=== PATIENT | male | born 1955 | race Two or more races ===

== ENCOUNTER 2022-12-02 10:11 | Inpatient (IN) | payer MEDICARE ==
[~2022-12-02] VITALS: Ht 170.2 cm; Wt 47.6 kg
--- NOTE | 2022-12-02 11:00 | NUR ---
Updated and made aware of plan of care. NO obvious distress
--- NOTE | 2022-12-02 11:40 | NUR ---
TECH AT BEDSIDE FOR EKG
--- NOTE | 2022-12-02 11:44 | NUR ---
CALLED [facility] [phone]BOTTS OSPINA.
[2022-12-02] MEDS ORDERED: IV NS 0.9% 1,000 ML BAG IV ONE (12:00)
[2022-12-02 12:06] LABS: CALCIUM, SERUM 9.3 mg/dL (8.5-10.1)
[2022-12-02 12:11] LABS: ALBUMIN 3.2 g/dL (3.4-5.0); BILIRUBIN,DIRECT 0.3 mg/dL (0.0-0.2); BILIRUBIN,TOTAL 0.9 mg/dL (0.2-1.0)
[2022-12-02 12:41] LABS: BASOPHILS % (AUTO) 0.1 % (0.0-2.0); HEMATOCRIT 37 % (39-51); LYMPHOCYTES # (AUTO) 1.1 K/uL (0.8-4.8); LYMPHOCYTES % (AUTO) 8.9 % (20.0-44.0); MEAN CORPUSCULAR HGB CONC 33 g/dl (31.0-36.0); MEAN CORPUSCULAR VOLUME 103 fL (80-96); MONOCYTES # (AUTO) 1.1 K/uL (0.1-1.30); MONOCYTES % (AUTO) 9.1 % (2.0-12.0); NEUTROPHILS # (AUTO) 9.9 K/uL (1.8-8.9); NEUTROPHILS % (AUTO) 81.9 % (43.0-81.0); PLATELET COUNT (AUTO) 187 K/uL (150-450); RED BLOOD CELL COUNT(AUTO) 3.59 MIL/uL (4.5-6.0); WHITE BLOOD COUNT (AUTO) 12.1 K/uL (4.3-11.0)
--- NOTE | 2022-12-02 12:51 | NUR ---
RAPID COVID SWAB DONE AND SENT TO LAB
[2022-12-02] MEDS ORDERED: ONDANSETRON HCL/PF 4 MG/2 ML VIAL IVP ONE (13:00)
[2022-12-02] MEDS ORDERED: MORPHINE SULFATE INJ 2 MG/ML DISP.SYRIN IV ONE (13:00)
[2022-12-02] MEDS ORDERED: MORPHINE SULFATE INJ 4 MG/ML DISP.SYRIN ONE (13:10)
[2022-12-02] MEDS ORDERED: ONDANSETRON HCL/PF 4 MG/2 ML VIAL ONE (13:10)
--- NOTE | 2022-12-02 13:15 | NUR ---
EPIC PAGED, AWAITING HOSPITALIST CALL BACK.
--- NOTE | 2022-12-02 14:43 | NUR ---
Awaiting Room assignment. Pt made aware of pending admission. NO acute Changes- VSS. States "pain ok when NOT moving"
--- NOTE | 2022-12-02 15:56 | NUR ---
BED 312-1
--- NOTE | 2022-12-02 16:00 | NUR ---
REPORT GIVEN TO LATRELL GARAY OF [facility]
--- NOTE | 2022-12-02 16:13 | NUR ---
NO obvious distress/NO acute changes.. VSS. Transfer to floor/[place] by EMT in stable condition
--- NOTE | 2022-12-02 16:30 | NUR ---
RN ADMITTING NOTE ADMITTED THIS 67 Y/O MALE PATIENT FROM ED. TRANSPORTED VIA GURNEY, ACCOMPANIED BY ER STAFF. PATIENT IS AWAKE, A/O X4. VERBALLY RESPONSIVE AND ABLE TO MAKE NEEDS KNOWN. PATIENT ON ROOM AIR, BREATHING EVEN AND UNLABORED. PATIENT C/O PAIN ON HIS RIGHT HIP WHEN MOVING. VITAL SIGNS TAKEN AND STABLE. NOTED WITH IV ACCESS ON RIGHT ANTECUBITAL AREA #20G, INTACT AND PATENT, FLUSHES WELL. UNABLE TO DO THOROUGH BODY ASSESSMENT PATIENT REFUSED TO BE TURNED BECAUSE OF PAIN. NO PERTINENT MEDICAL HISTORY. SAFETY MEASURE IN PLACE. BED IN LOW AND LOCKED POSITION. SIDE RAILS UP X2, TABLE AND WENDY LIGHT PLACED WITHIN EASY REACH. WILL CONTINUE TO MONITOR PATIENT.
[2022-12-02 17:46] VITALS: BP 140/83
--- NOTE | 2022-12-02 18:50 | NUR ---
RN CLOSING NOTE PATIENT RESTING IN BED, AWAKE. DENIES ANY PAIN AT THIS TIME, PAIN ONLY WHEN HE MOVES. REMAINS STABLE ON ROOM AIR, BREATHING EVEN AND UNLABORED, NO SOB NOTED. IV ACCESS JOSHUA RIGHT AC #20G, INTACT AND PATENT, SALINE LOCKED. SAFETY MEASURE IN PLACE. BED IN LOW AND LOCKED POSITION, SIDE RAILS UP X2, CALL LIGHT PLACED WITHIN EASY REACH. WILL ENDORSE TO NEXT SHIFT FOR CONTINUITY OF CARE.
[2022-12-02] MEDS ORDERED: Z GUARD REMEDY 4 OZ OINT TP PRN (19:00)
[2022-12-02] MEDS ORDERED: ONDANSETRON HCL/PF 4 MG/2 ML VIAL IVP PRN (19:00)
[2022-12-02] MEDS ORDERED: ACETAMINOPHEN 325 MG TABLET PO PRN (19:00)
[2022-12-02] MEDS ORDERED: MAGNESIUM HYDROXIDE 30 ML UDC PO PRN (19:00)
--- NOTE | 2022-12-02 19:00 | NUR ---
MS RN OPENING NOTE PATIENT IS IN BED WATCHING TV. HE IS ALERT AND ORIENTED, AO X 4. HE IS ON RA, TOLERATED WELL. NO S/S OF DISTRESS OR SOB. IV ACCESS IS AT HIS R AC, #20G, SL. FLUSHED WITH 10 CC NS; PATENT AND INTACT. PATIENT DENIES OF HAVING PAIN AT THIS MOMENT. SAFETY MEASURES ARE IN PLACE: BED IN LOWEST AND LOCKED POSITION; CALL LIGHT AND TABLE ARE WITHIN REACH; SIDE RAILS UP X 2. WILL CONTINUE MONITORING THE PATIENT AND PROVIDE THE CARE PATIENT NEEDS.
[2022-12-02 20:20] VITALS: BP 106/73
[2022-12-02] MEDS: ENOXAPARIN SODIUM 40 MG/0.4 ML DISP.SYRIN SQ SCH (20:55)
[2022-12-03 06:34] LABS: BASOPHILS % (AUTO) 0.5 % (0.0-2.0); EOSINOPHILS % (AUTO) 0.5 % (0.0-6.0); HEMATOCRIT 32 % (39-51); HEMOGLOBIN 10.8 g/dL (13.5-17.5); LYMPHOCYTES # (AUTO) 1.6 K/uL (0.8-4.8); LYMPHOCYTES % (AUTO) 20.4 % (20.0-44.0); MEAN CORPUSCULAR HGB CONC 34 g/dl (31.0-36.0); MEAN CORPUSCULAR VOLUME 102 fL (80-96); MONOCYTES # (AUTO) 0.7 K/uL (0.1-1.30); MONOCYTES % (AUTO) 8.9 % (2.0-12.0); NEUTROPHILS # (AUTO) 5.6 K/uL (1.8-8.9); NEUTROPHILS % (AUTO) 69.7 % (43.0-81.0); PLATELET COUNT (AUTO) 154 K/uL (150-450); RED BLOOD CELL COUNT(AUTO) 3.11 MIL/uL (4.5-6.0); WHITE BLOOD COUNT (AUTO) 8.1 K/uL (4.3-11.0)
[2022-12-03 06:55] LABS: ALBUMIN 2.5 g/dL (3.4-5.0); BILIRUBIN,TOTAL 0.7 mg/dL (0.2-1.0); CALCIUM, SERUM 8.5 mg/dL (8.5-10.1); CREATININE 0.9 mg/dL (0.6-1.3); MAGNESIUM 1.7 mg/dL (1.8-2.4); PHOSPHORUS 3.3 mg/dL (2.5-4.9); POTASSIUM 3.3 mmol/L (3.5-5.1)
--- NOTE | 2022-12-03 07:03 | NUR ---
MS RN CLOSING NOTE PATIENT IS IN BED SLEEPING; EASILY BEING AROUSED. HE IS ALERT AND ORIENTED, AO X 4. HE IS ON RA, TOLERATED WELL. NO S/S OF DISTRESS OR SOB. IV ACCESS IS AT HIS R AC, #20G, SL. FLUSHED WITH 10 CC NS; PATENT AND INTACT. PATIENT DENIES OF HAVING PAIN AT THIS MOMENT. SAFETY MEASURES ARE IN PLACE: BED IN LOWEST AND LOCKED POSITION; CALL LIGHT AND TABLE ARE WITHIN REACH; SIDE RAILS UP X 2. WILL ENDORSE NEXT SHIFT NURSE FOR CONTINUING PATIENT CARE.
--- NOTE | 2022-12-03 07:25 | NUR ---
MS RN NOTES PATIENT IN BED, ALERT ORIENTED X 4. NO ACUTE DISTRESS NOTED. BREATHING UNLABORED. IV ACCESS PATENT AND INTACT, NO REDNESS NO SWELLING NOTED. SAFETY MEASURES IN PLACE. WILL CONTINUE TO MONITOR ACCORDINGLY
[2022-12-03] MEDS: PANTOPRAZOLE 40 MG TABLET.DR PO SCH (07:45)
[2022-12-03 08:00] VITALS: BP 118/70
[2022-12-03] MEDS ORDERED: POTASSIUM CHLORIDE 20 MEQ TAB.PRT.SR PO ONE (09:30)
[2022-12-03] MEDS ORDERED: MAGNESIUM OXIDE 400 MG TABLET PO ONE (10:30)
[2022-12-03] MEDS: ENSURE ENLIVE 237 ML LIQUID (VANILLA) PO SCH ×2 (12:30→17:14)
[2022-12-03 16:00] VITALS: BP 119/73
[2022-12-03] MEDS: ENOXAPARIN SODIUM 40 MG/0.4 ML DISP.SYRIN SQ SCH ×2 (18:44→18:47)
--- NOTE | 2022-12-03 18:55 | NUR ---
MS RN NOTES PATIENT REFUSED LOVENOX, RISK AND BENEFITS EXPLAINED, STRONGLY REFUSED
--- NOTE | 2022-12-03 19:00 | NUR ---
MS RN NOTES PATIENT IN BED, ALERT ORIENTED X 4. NO ACUTE DISTRESS NOTED. BREATHING UNLABORED. IV ACCESS PATENT AND INTACT, NO REDNESS NO SWELLING NOTED. CALL LIGHT WITHIN REACH. SAFETY MEASURES IN PLACE. NEEDS ATTENDED AND ANTICIPATED. WILL ENDORSE TO NIGHT NURSE FOR CONTINUITY OF CARE.
--- NOTE | 2022-12-03 19:30 | NUR ---
MS RN NOTES RECEIVED LYING ON BED,A/O X4,BREATHING NORMAL,NOT IN ANY FORM OF DISTRESS,SALINE LEFT FOREARM INTACT AND PATENT.INSTRUCTED NPO POST MIDNIGHT FOR FOR SURGERY IN THE MORNING,CONSENT ON CHART.S/P FALL AT HOME,SUSTAINED RIGHT HIP FRACTURE.WILL CONTINUE TO MONITOR STATUS,CALL LIGHT IN REACH,NEEDS ANTICIPATED.
[2022-12-03 20:00] VITALS: BP 119/73
[2022-12-03] MEDS: MORPHINE SULFATE INJ 2 MG/ML DISP.SYRIN IV PRN (21:30)
--- NOTE | 2022-12-03 21:30 | NUR ---
MS RN NOTES PAIN MANAGEMENT C/O PAIN ON RIGHT HIP,8/10 ON PAIN SCALE,MORPHINE 4MG IV GIVEN ORDERED
[2022-12-04 06:13] LABS: BASOPHILS % (AUTO) 0.3 % (0.0-2.0); EOSINOPHILS % (AUTO) 0.5 % (0.0-6.0); HEMATOCRIT 31 % (39-51); HEMOGLOBIN 10.7 g/dL (13.5-17.5); LYMPHOCYTES # (AUTO) 1.3 K/uL (0.8-4.8); LYMPHOCYTES % (AUTO) 16.4 % (20.0-44.0); MEAN CORPUSCULAR HGB CONC 34 g/dl (31.0-36.0); MEAN CORPUSCULAR VOLUME 101 fL (80-96); MONOCYTES # (AUTO) 0.8 K/uL (0.1-1.30); MONOCYTES % (AUTO) 10.2 % (2.0-12.0); NEUTROPHILS # (AUTO) 5.8 K/uL (1.8-8.9); NEUTROPHILS % (AUTO) 72.6 % (43.0-81.0); PLATELET COUNT (AUTO) 152 K/uL (150-450); RED BLOOD CELL COUNT(AUTO) 3.09 MIL/uL (4.5-6.0); WHITE BLOOD COUNT (AUTO) 7.9 K/uL (4.3-11.0)
[2022-12-04 06:30] LABS: CALCIUM, SERUM 8.6 mg/dL (8.5-10.1); CREATININE 0.7 mg/dL (0.6-1.3); PHOSPHORUS 2.9 mg/dL (2.5-4.9); POTASSIUM 3.4 mmol/L (3.5-5.1)
--- NOTE | 2022-12-04 06:36 | NUR ---
MS RN NOTES SLEEP WELL WITH PAIN MANAGEMENT.NPO STATUS GOING FOR RIGHT HIP INTRAMEDULLARY RODDING TODAY.SALINE LOCK LEFT FOREARM INTACT AND PATENT.NO DISTRESS.WILL ENDORSE TO DAY NURSE FOR BISHNU.
[2022-12-04] MEDS: PANTOPRAZOLE 40 MG TABLET.DR PO SCH (07:30)
--- NOTE | 2022-12-04 07:40 | NUR ---
MS RN OPENING NOTE PATIENT AWAKE IN BED, AO X 4. HE IS ON RA, TOLERATED WELL. NO S/S OF DISTRESS OR SOB. IV ACCESS AT [facility] SL. FLUSHED WITH 10 CC NS; PATENT AND INTACT. PATIENT DENIES OF HAVING PAIN AT THIS MOMENT. MAINTAINED ON NPO, SCHEDULED FOR RT. HIP INTRAMEDULLARY NODDING TODAY. SAFETY MEASURES ARE IN PLACE: BED IN LOWEST AND LOCKED POSITION; CALL LIGHT AND TABLE ARE WITHIN REACH; SIDE RAILS UP X 2. WILL CONTINUE TO MONITOR.
[2022-12-04 08:00] VITALS: BP 142/87
[2022-12-04] MEDS: ENSURE ENLIVE 237 ML LIQUID (VANILLA) PO SCH ×3 (09:00→17:58)
[2022-12-04] MEDS: POTASSIUM CL. PREMIX PERIPHER. 50 ML IV SCH ×2 (10:00→10:35)
--- NOTE | 2022-12-04 11:30 | NUR ---
RN NOTES PATIENT LEFT FOR SURGERY. WILL MONITOR.
[2022-12-04] MEDS ORDERED: HYDROMORPHONE INJ 2 MG/ML DISP.SYRIN ONE (12:16)
[2022-12-04] MEDS ORDERED: FAMOTIDINE/PF INJ 20 MG/2 ML VIAL IV ONE (12:17)
[2022-12-04] MEDS ORDERED: KETAMINE HCL (500MG/10ML) 50 MG/ML VIAL ONE (12:17)
[2022-12-04] MEDS ORDERED: POLYMYXIN B SULFATE 500,000 UNITS ONE (12:58)
[2022-12-04] MEDS ORDERED: MEPERIDINE25 MG SYR 25 MG/ML VIAL ONE (14:00)
--- NOTE | 2022-12-04 15:25 | NUR ---
RN NOTES PATIENT CAME BACK FROM SURGERY A/OX4, NO C/O PAIN/DISCOMFORT A THIS TIME. LATEST VITALS ARE FOLLOWS BP-150/88 SPO2-98% ON OXYGEN AT 4LPM T-98 RR-18. WILL MONITOR.
[2022-12-04] MEDS: MORPHINE SULFATE INJ 2 MG/ML DISP.SYRIN IV PRN (18:06)
[2022-12-04] MEDS: ENOXAPARIN SODIUM 40 MG/0.4 ML DISP.SYRIN SQ SCH (18:07)
--- NOTE | 2022-12-04 19:35 | NUR ---
RN CLOSING NOTES PATIENT A/OX4, ON RA, TOLERATING WELL. NO SIGNS OF COMPLICATIONS AFTER SURGERY, MONITORED PATIENT FREQUENTLY, CHECKED VITALS EVERY 15MINS ON FIRST HOUR POST SURGERY. NO C/O OF PAIN OR DISCOMFORT AT THIS TIME. POST ORIGHT HIP WOUND DRY AND INTACT. BOTH IV ACCESS AT LFA G. 20 AND RFA G. 22 ARE BOTH INTACT AND PATENT. SAFETY MEASURES MAINTAINED: BED LOCKED AND IN LOWEST POSITION, HOB ELEVATED, SIDE RAILS UP x2, CALL LIGHT WITHIN REACH. WILL ENDORSED TO NEXT SHIFT FOR CONTINUITY OF CARE.
--- NOTE | 2022-12-04 19:35 | NUR ---
RN OPENING NOTE RECEIVED PATIENT IN BED; AWAKE, ALERT AND ORIENTED X 4. ON ROOM AIR; TOLERATING WELL. BREATHING EVEN AND NONLABORED. NO C/O ANY PAIN OR DISCOMFORT AT THIS TIME. ABLE TO MAKE NEEDS KNOWN. WITH IV ACCESS ON RIGHT FA 22g AND LEFT FA 20g; BOTH ARE PATENT, INTACT AND SALINE LOCKED. WITH RIGHT HIP DRESSING; CLEAN, DRY AND INTACT. SAFETY PRECAUTIONS IMPLEMENTED: CALL LIGHT AND TABLE WITHIN REACH, SIDE RAILS UP X 3, BED IN LOWEST LOCKED POSITION. WILL CONTINUE PLAN OF CARE.
[2022-12-04 20:00] VITALS: BP 127/78
[2022-12-04] MEDS: CEFAZOLIN 2 GM in IV D5W 100 ML IV SCH (20:47)
[2022-12-05] MEDS: CEFAZOLIN 2 GM in IV D5W 100 ML IV SCH ×2 (05:18→12:28)
[2022-12-05 06:26] LABS: BASOPHILS % (AUTO) 0.2 % (0.0-2.0); EOSINOPHILS % (AUTO) 0.1 % (0.0-6.0); HEMATOCRIT 29 % (39-51); HEMOGLOBIN 9.9 g/dL (13.5-17.5); LYMPHOCYTES # (AUTO) 1.5 K/uL (0.8-4.8); MEAN CORPUSCULAR HGB CONC 35 g/dl (31.0-36.0); MEAN CORPUSCULAR VOLUME 101 fL (80-96); MONOCYTES % (AUTO) 11.5 % (2.0-12.0); NEUTROPHILS # (AUTO) 6.3 K/uL (1.8-8.9); NEUTROPHILS % (AUTO) 71.2 % (43.0-81.0); PLATELET COUNT (AUTO) 164 K/uL (150-450); RED BLOOD CELL COUNT(AUTO) 2.82 MIL/uL (4.5-6.0); WHITE BLOOD COUNT (AUTO) 8.8 K/uL (4.3-11.0)
[2022-12-05 06:49] LABS: CALCIUM, SERUM 8.5 mg/dL (8.5-10.1); CREATININE 0.8 mg/dL (0.6-1.3); PHOSPHORUS 2.7 mg/dL (2.5-4.9); POTASSIUM 4.1 mmol/L (3.5-5.1)
--- NOTE | 2022-12-05 06:50 | NUR ---
RN CLOSING NOTE PATIENT IN BED; AWAKE, A/O X 4. STABLE ON ROOM AIR. BREATHING EQUAL AND UNLABORED. DENIES ANY PAIN OR DISCOMFORT AT THIS TIME. ALL NEEDS ATTENDED. WITH IV ACCESS ON RIGHT FA 22g AND LEFT FA 20g; BOTH ARE PATENT, INTACT AND SALINE LOCKED. STILL WITH RIGHT HIP DRESSING FROM SURGERY; CLEAN, DRY AND INTACT. SAFETY PRECAUTIONS MAINTAINED: CALL LIGHT AND TABLE WITHIN REACH, SIDE RAILS UP X 3, BED IN LOWEST LOCKED POSITION. ENDORSED TO JARROD MACDONALD FOR BISHNU.
--- NOTE | 2022-12-05 07:30 | NUR ---
RN OPENING NOTE PATIENT IN BED; AWAKE, A/O X 4. STABLE ON ROOM AIR. BREATHING EQUAL AND UNLABORED. DENIES ANY PAIN OR DISCOMFORT AT THIS TIME. WITH IV ACCESS ON RIGHT FA 22g AND LEFT FA 20g; BOTH ARE PATENT, INTACT AND SALINE LOCKED. STILL WITH RIGHT HIP DRESSING FROM SURGERY; CLEAN, DRY AND INTACT. SAFETY PRECAUTIONS MAINTAINED: CALL LIGHT AND TABLE WITHIN REACH, SIDE RAILS UP X 3, BED IN LOWEST LOCKED POSITION. WILL CONTINUE TO MONITOR.
[2022-12-05] MEDS: PANTOPRAZOLE 40 MG TABLET.DR PO SCH (07:47)
[2022-12-05 08:26] VITALS: BP 131/81
[2022-12-05] MEDS: ENSURE ENLIVE 237 ML LIQUID (VANILLA) PO SCH ×3 (10:00→17:23)
[2022-12-05] MEDS: MORPHINE SULFATE INJ 2 MG/ML DISP.SYRIN IV PRN (10:47)
[2022-12-05] MEDS ORDERED: ENOXAPARIN SODIUM 40 MG/0.4 ML DISP.SYRIN SQ SCH (15:00)
[2022-12-05 15:57] VITALS: BP 142/73
--- NOTE | 2022-12-05 18:06 | NUR ---
RN CLOSING NOTE PATIENT AWAKE IN BED A/O X 4. STABLE ON ROOM AIR. BREATHING EQUAL AND UNLABORED. DENIES ANY PAIN OR DISCOMFORT AT THIS TIME. ALL NEEDS ATTENDED. WITH IV ACCESS ON RIGHT FA 22g AND LEFT FA 20g; BOTH ARE PATENT, INTACT AND SALINE LOCKED. STILL WITH RIGHT HIP DRESSING FROM SURGERY; CLEAN, DRY AND INTACT. ALL DUE MMEDS GIVEN, ENCOURAGED INCREASE MOBILITY ORDERED. SAFETY PRECAUTIONS MAINTAINED: CALL LIGHT AND TABLE WITHIN REACH, SIDE RAILS UP X 3, BED IN LOWEST LOCKED POSITION. WILL ENDORSED TO NEXT SHIFT FOR CONTINUITY OF CARE.
[2022-12-05] MEDS: ENOXAPARIN SODIUM 40 MG/0.4 ML DISP.SYRIN SQ SCH (21:00)
[2022-12-06 06:12] LABS: BASOPHILS % (AUTO) 0.2 % (0.0-2.0); CALCIUM, SERUM 8.5 mg/dL (8.5-10.1); CREATININE 0.8 mg/dL (0.6-1.3); EOSINOPHILS % (AUTO) 0.4 % (0.0-6.0); HEMATOCRIT 28 % (39-51); HEMOGLOBIN 9.2 g/dL (13.5-17.5); LYMPHOCYTES # (AUTO) 1.4 K/uL (0.8-4.8); MAGNESIUM 2.1 mg/dL (1.8-2.4); MEAN CORPUSCULAR HGB CONC 33 g/dl (31.0-36.0); MEAN CORPUSCULAR VOLUME 102 fL (80-96); MONOCYTES # (AUTO) 1.1 K/uL (0.1-1.30); MONOCYTES % (AUTO) 13.3 % (2.0-12.0); NEUTROPHILS # (AUTO) 5.5 K/uL (1.8-8.9); NEUTROPHILS % (AUTO) 69.1 % (43.0-81.0); PHOSPHORUS 3.3 mg/dL (2.5-4.9); PLATELET COUNT (AUTO) 183 K/uL (150-450); POTASSIUM 3.7 mmol/L (3.5-5.1); RED BLOOD CELL COUNT(AUTO) 2.71 MIL/uL (4.5-6.0)
[2022-12-06] MEDS: PANTOPRAZOLE 40 MG TABLET.DR PO SCH (06:30)
--- NOTE | 2022-12-06 07:50 | NUR ---
RN OPENING NOTE PATIENT AWAKE IN BED RESTING, A/O X4. NO S/S OF PAIN NOTED AT THIS TIME. ON ROOM AIR, BREATHING EVEN UNLABORED, NO DISTRESS OR SHORTNESS OF BREATH NOTED AT THIS TIME. IV ACCESS RFA #22G, LFA #20G INTACT PATENT AND FLUSHING WELL. FALL AND SAFETY MEASURES IN PLACE, BED ALARM ON, BED IN LOW AND LOCK POSITION, CALL LIGHT AND TABLE WITHIN EASY REACH, SIDE RAILS UP X2. WILL CONTINUE TO MONITOR.
[2022-12-06 08:00] VITALS: BP 121/74
[2022-12-06] MEDS: ENSURE ENLIVE 237 ML LIQUID (VANILLA) PO SCH ×3 (08:47→17:01)
[2022-12-06] MEDS: MORPHINE SULFATE INJ 2 MG/ML DISP.SYRIN IV PRN (13:28)
[2022-12-06 16:00] VITALS: BP 110/64
--- NOTE | 2022-12-06 18:54 | NUR ---
RN CLOSING NOTE PATIENT AWAKE IN BED RESTING, A/O X4. NO S/S OF PAIN NOTED AT THIS TIME. ON ROOM AIR, BREATHING EVEN UNLABORED, NO DISTRESS OR SHORTNESS OF BREATH NOTED AT THIS TIME, SAT. 98%. IV ACCESS RFA #22G, LFA #20G INTACT PATENT AND FLUSHING WELL. SCHEDULE MEDICATIONS ADMINISTERED. PATIENT WAS ENCOURAGE TURN AND REPOSITION PER PROTOCOL. FALL AND SAFETY MEASURES IN PLACE, BED ALARM ON, BED IN LOW AND LOCK POSITION, CALL LIGHT AND TABLE WITHIN EASY REACH, SIDE RAILS UP X2. ALL NEEDS ATTENDED AND ANTICIPATED. WILL ENDORSE TO DOUBLE SPINDLE SHAPER OPERATOR NURSE.
[2022-12-06 20:00] VITALS: BP 101/63
[2022-12-06] MEDS: ENOXAPARIN SODIUM 40 MG/0.4 ML DISP.SYRIN SQ SCH (20:25)
[2022-12-07] MEDS: PANTOPRAZOLE 40 MG TABLET.DR PO SCH (06:09)
[2022-12-07 06:55] LABS: BASOPHILS % (AUTO) 0.5 % (0.0-2.0); EOSINOPHILS % (AUTO) 1.7 % (0.0-6.0); HEMATOCRIT 27 % (39-51); HEMOGLOBIN 9.3 g/dL (13.5-17.5); LYMPHOCYTES # (AUTO) 1.2 K/uL (0.8-4.8); LYMPHOCYTES % (AUTO) 17.8 % (20.0-44.0); MEAN CORPUSCULAR HGB CONC 35 g/dl (31.0-36.0); MEAN CORPUSCULAR VOLUME 102 fL (80-96); MONOCYTES # (AUTO) 0.9 K/uL (0.1-1.30); MONOCYTES % (AUTO) 12.6 % (2.0-12.0); NEUTROPHILS # (AUTO) 4.7 K/uL (1.8-8.9); NEUTROPHILS % (AUTO) 67.4 % (43.0-81.0); PLATELET COUNT (AUTO) 214 K/uL (150-450); RED BLOOD CELL COUNT(AUTO) 2.64 MIL/uL (4.5-6.0)
[2022-12-07 07:20] LABS: CALCIUM, SERUM 8.6 mg/dL (8.5-10.1); CREATININE 0.7 mg/dL (0.6-1.3); POTASSIUM 3.7 mmol/L (3.5-5.1)
[2022-12-07 08:00] VITALS: BP 119/64
[2022-12-07] MEDS: ENSURE ENLIVE 237 ML LIQUID (VANILLA) PO SCH ×3 (08:07→17:01)
[2022-12-07] MEDS ORDERED: PANT40TA49 PO (09:08)
[2022-12-07] MEDS ORDERED: ENOX40DI SQ (09:08)
[2022-12-07] MEDS: MORPHINE SULFATE INJ 2 MG/ML DISP.SYRIN IV PRN (11:53)
[2022-12-07 15:33] VITALS: BP 95/58
--- NOTE | 2022-12-07 19:30 | NUR ---
SUPERVISOR [employer] NOTE PATIENT WAS DISCHARGE TODAY. A/O X 4. V/S TAKEN, STABLE AND RECORDED. MEDICATIONS WERE GIVEN BEFORE PATIENT LEFT. NO IV ACCESS. NAME ARM BAND REMOVED. SKIN ASSESSMENT DONE SKIN INTACT EXCEPT FOR BACK SURGICAL SITE, DRESSING INTACT, CLEAN, DRY, NO SIGN OF INFECTION ON THE SURROUNDING AREAS, DOCTOR WILL REMOVE DRESSING AT THE OFFICE. HEALTH TEACHING AND DISCHARGE INSTRUCTIONS GIVEN AND VERBALIZED UNDERSTANDING. INTRUSTED PATIENT TO FOLLOW UP WITH HIS DOCTOR, DISCUSSED PRESCRIPTIONS WITH PATIENT, INSTRUCTED PATIENT IN CASE OF EMERGENCY TO CALL 911 OR GO TO NEAREST ER. REPORT WAS GIVEN TO NURSE AT [facility] [place], . PATIENT LEFT UNIT VIA GURNEY WITH NO SIGN OF DISTRESS ACCOMPANIED BY PARAMEDICS. PATIENT WENT TO [facility] [place], ROOM 325. CHARGE NURSE AWARE OF DISCHARGED.
== END 2022-12-08 | DRG 480 ==
LOC: ER 10:13 → MED 16:27
PROVIDERS: ADMIT Nurse Practitioner Acute Care; ATTEND Internal Medicine
PROC: 0QS606Z Reposition Right Upper Femur with Intramedullary Internal Fixation Device, Open Approach (ICD-10-PCS; principal; 2022-12-04)
DX: S72.141A Displaced intertrochanteric fracture of right femur, initial encounter for closed fracture (principal); N17.0 Acute kidney failure with tubular necrosis; W01.0XXA Fall on same level from slipping, tripping and stumbling without subsequent striking against object, initial encounter; Y92.009 Unspecified place in unspecified non-institutional (private) residence as the place of occurrence of the external cause; Z20.822 Contact with and (suspected) exposure to COVID-19; D72.829 Elevated white blood cell count, unspecified; D75.89 Other specified diseases of blood and blood-forming organs; E88.09 Other disorders of plasma-protein metabolism, not elsewhere classified; R74.01 Elevation of levels of liver transaminase levels; Z87.891 Personal history of nicotine dependence
CPT/HCPCS: 36415; 71045-TC; 73502; 73552; 73700-TC; 80048-TC; 80053-TC; 80061-TC; 80076-TC; 83735-TC; 84100-TC; 85025-TC; 85730-TC; 87081-TC; 93970-TC; 97110-TC; 97112-TC; 97116-TC; 97530-TC; A6209; C1713; C9803; G0378; J0690; J1100; J1170; J1650; J2175; J2270; J2370; J2405; J2704; J3480; J3490; J7030; J7050; J7060